=== PATIENT | male | born 1975 | race Asian ===

== ENCOUNTER 2023-11-24 19:52 | Emergency (ER) | payer OTHER ==
[2023-11-24 20:05] VITALS: BP 100/60; PULSE 70; RESP 16; TEMP 98; BMI 21.9
[2023-11-24] MEDS ORDERED: LIDOCAINE HCL 2% JELLY 11 ML TP ONE (20:39)
[2023-11-24] MEDS ORDERED: DIPHTH,PERTUSS(ACELL),TET 0.5 ML DISP.SYRIN IM ONE (20:40)
[2023-11-24] MEDS ORDERED: ACETAMINOPHEN 500 MG TABLET (FP) ONE (20:40)
[2023-11-24] MEDS: ACETAMINOPHEN 500 MG TABLET (FP) PO ONE (20:44)
[2023-11-24] MEDS: LIDOCAINE HCL 2% JELLY (30 ML/TUBE) TP ONE (20:44)
[2023-11-24] MEDS: DIPHTH,PERTUSS(ACELL),TET 0.5 ML DISP.SYRIN IM ONE (20:45)
== END 2023-11-24 21:28 | disposition home or self-care (01) ==
LOC: JERFT 19:52
PROC: 3E0234Z Introduction of Serum, Toxoid and Vaccine into Muscle, Percutaneous Approach (ICD-10-PCS; principal; 2023-11-24)
PROC: 0HQ0XZZ Repair Scalp Skin, External Approach (ICD-10-PCS; 2023-11-24)
DX: S01.01XA Laceration without foreign body of scalp, initial encounter (principal); W20.8XXA Other cause of strike by thrown, projected or falling object, initial encounter; Z23 Encounter for immunization
CPT/HCPCS: 90715; 99283-25